=== PATIENT | female | born 1975 | race American Indian/Alaskan Native ===

== ENCOUNTER 2019-01-29 14:56 | Emergency (ER) | payer MEDICAID ==
[2019-01-29 15:06] VITALS: O2SAT 98
[2019-01-29] MEDS ORDERED: Sodium Chloride 0.9% 1,000 ML IV STA (15:34)
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
[2019-01-29 16:32] LABS: BASO % 0.5 % (0.0-2.0); EOS % 0.1 % (0.0-4.0); HEMOGLOBIN 10.8 g/dL (12.0-16.0); LYMPH # 1.3 K/uL (1.0-4.3); LYMPH % 21.1 % (20.0-40.0); MEAN CELL VOLUME 95.5 fl (81.0-99.0); MEAN CORPUSCULAR HGB CONC 33.5 g/dL (33.0-37.0); MEAN PLATELET VOLUME 8.3 fl (7.2-11.7); MONO # 0.3 K/uL (0.0-0.8); NEUT # 4.5 K/uL (1.8-7.0); NEUT % 73.3 % (50.0-75.0); NRBC % 0.1 % (0.0-0.0); RBC 3.37 Mil/uL (3.80-5.20); RED CELL DISTRIBUTION WIDTH 13.7 % (11.5-14.5); WHITE BLOOD COUNT 6.1 K/uL (4.8-10.8)
[2019-01-29 16:47] LABS: ALB/GLOB RATIO 1.3 (1.0-2.1); ALBUMIN 4.3 g/dL (3.5-5.0); ALT/SGPT 25 U/L (9-52); AST/SGOT 28 U/L (14-36); BLOOD UREA NITROGEN 11 mg/dl (7-17); CALCIUM 9.3 mg/dL (8.4-10.2); GFR NON-AFRICAN AMERICAN > 60; LIPASE 53 U/L (23-300)
[2019-01-29 17:15] LABS: SQUAMOUS EPITHIAL 1 /hpf (0-5); URINE BILIRUBIN NEGATIVE (NEGATIVE); URINE BLOOD LARGE (NEGATIVE); URINE CLARITY CLOUDY (Clear); URINE COLOR BLUE (YELLOW); URINE GLUCOSE (UA) NEG (NEGATIVE); URINE LEUKOCYTE ESTERASE NEG Leu/uL (Negative); URINE PROTEIN 30 mg/dL (NEGATIVE); URINE UROBILINOGEN 0.2-1.0 mg/dL (0.2-1.0)
[2019-01-29] MEDS ORDERED: Iohexol 240 (50 ml) PO ONE (18:04)
[2019-01-29] MEDS ORDERED: Iohexol 240 (50 ml) ONE (18:29)
[2019-01-29] MEDS ORDERED: Sodium Chloride 0.9% 50 ML IV ONE (20:13)
[2019-01-29] MEDS ORDERED: Iohexol 300 100 ML IJ ONE (20:13)
[2019-01-30 08:06] VITALS: BP 118/65; PULSE 73; RESP 18; TEMP 98.2
--- NOTE | 2019-01-30 12:22 | CT ---
Date of service: 01/29/2019 PROCEDURE: CT Abdomen and Pelvis with contrast HISTORY: abd pain COMPARISON: 08/19/2011 TECHNIQUE: Contrast dose: 95 mL Omnipaque 300 Radiation dose: Total exam DLP = 750.0 mGy-cm. This CT exam was performed using one or more of the following dose reduction techniques: Automated exposure control, adjustment of the mA and/or kV according to patient size, and/or use of iterative reconstruction technique. FINDINGS: LOWER THORAX: No infiltrate/effusion. Bilateral breast augmentation prostheses. Small hiatal hernia. LIVER: Unremarkable. No gross lesion or ductal dilatation. GALLBLADDER AND BILE DUCTS: Cholecystectomy. Minimal dilatation of the common bile duct consistent with prior cholecystectomy PANCREAS: Unremarkable. No gross lesion or ductal dilatation. SPLEEN: Unremarkable. ADRENALS: Unremarkable. No mass. KIDNEYS AND URETERS: Unremarkable. No hydronephrosis. No solid mass. VASCULATURE: Unremarkable. No aortic aneurysm. No aortic atherosclerotic calcification or mural plaque present. BOWEL: Mild mural thickening of the transverse, descending and sigmoid colon. This may reflect an acute or possibly chronic colitis as there is mild lucency within the wall of the affected portions of the colon. APPENDIX: Not identified. No secondary findings. PERITONEUM: Moderate free fluid in the pelvis. Nonspecific. LYMPH NODES: Unremarkable. No enlarged lymph nodes. BLADDER: Unremarkable. REPRODUCTIVE: Markedly enlarged uterus with heterogeneous enhancement and endometrial fluid. Differential diagnosis includes recent , endometritis/Gay tried S or other inflammatory process. Correlate with history. There is a peripherally enhancing irregular structure in the right ovary measuring 1.9 cm in diameter, consistent with involuting or hemorrhagic follicular cyst. BONES: No acute fracture. OTHER FINDINGS: None. IMPRESSION: Markedly enlarged heterogeneously enhancing uterus with endometrial fluid. Differential diagnosis includes recent or infectious/inflammatory process. Correlation with history is necessary. There is moderate free fluid in the pelvis. There is a probable hemorrhagic or involuting right ovarian follicular cyst. Questionable mild colitis versus chronic colitis as evidenced by some intramural lucency in the affected portions of the colon. Small hiatal hernia. Status post cholecystectomy. The preliminary findings for this examination were reported by [facility] [[email or web address]] Radiology at 9:34 p.m. on 01/29/2019. There is concurrence of this report with the preliminary findings.
== END 2019-01-29 23:11 | disposition home or self-care (01) ==
LOC: H.ER 14:56
DX: R10.9 Unspecified abdominal pain (principal); K52.9 Noninfective gastroenteritis and colitis, unspecified; N71.0 Acute inflammatory disease of uterus; G89.29 Other chronic pain; Z79.899 Other long term (current) drug therapy; K44.9 Diaphragmatic hernia without obstruction or gangrene
CPT/HCPCS: 74177; 80053; 81003; 81025; 83690; 85025; 87086; 96361; 96374; 96375; 99284; J1885; J2405; J7030; Q9966; Q9967